=== PATIENT | male | born 1985 | race Caucasian/White ===

== ENCOUNTER 2016-09-23 18:26 | Inpatient (IN) | payer OTHER ==
[~2016-09-23] VITALS: Ht 175.3 cm; Wt 90.7 kg
--- NOTE | ~2016-09-23 | HC ---
[facility] [address] CONSULTATION Name: KRISHNA HUNTER Room #: 535-P [facility] IN M.R.#: [id number] Admission: 09/23/16 Attend Phys: Adrien Collins DO Discharge: Date of : 85 Report #: [id number] THIS REPORT FOR: //name// CC: SVETLANA physician/PCP Adrien Collins DATE OF SERVICE: 09/24/2016 SERVICE: Orthopedics. FACILITY: [facility] REQUESTING PHYSICIAN: Dr. Mercy Moreira. REASON FOR CONSULTATION: Left hand fractures. PAST MEDICAL HISTORY: Reported history of alcohol abuse, previous drug abuse. PAST SURGICAL HISTORY: Denies. ALLERGIES: No known drug allergies. MEDICATIONS: Hydrocodone, Keflex prescription. FAMILY HISTORY: Noncontributory. SOCIAL HISTORY: The patient has unstable home environment for the past 3 years. He has been staying with family members primarily. He smokes approximately a pack per day. He reports heavy alcohol use and history of marijuana use, but no other drugs. REVIEW OF SYSTEMS: Positive for left hand pain and left knee pain. HISTORY OF PRESENT ILLNESS: The patient is a 31-year-old right hand dominant gentleman who works odd jobs for financial needs who sustained an acute left hand injury on 09/23/2016. 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 He presented to emergency room where he underwent irrigation, debridement, tetanus administration and IV antibiotics administration. He had primary closure and splint placing. He then apparently was found to be had returned to the emergency room and because of concerns of followup needs and has expressed concern about depression and alcohol abuse, he was admitted to the hospital for further care. [facility] [address] [place] [address] CONSULTATION Name: KRISHNA HUNTER Room #: 535-P ADM IN M.R.#: [id number] Admission: 09/23/16 Attend Phys: Adrien Collins DO Discharge: Date of : 85 Report #: [id number] The patient presently complains of left small ring finger pain. He states he has been able to flex the IP joints. PHYSICAL EXAMINATION: VITAL SIGNS: Temperature is 36.6, pulse 78, respirations 18, blood pressure 111/65. GENERAL: He is healthy appearing male who appears his stated age. HEAD: There is evidence of ecchymosis around the eye from previous trauma. LEFT UPPER EXTREMITY: There is an oblique shinto across the volar aspect of the long ring finger that has been closed. There is some skin maceration present. There is no open wound dorsally. There is no deformity. He has gross sensation intact on the tip of the finger with brisk capillary refill. He demonstrates active flexion of the IP and MCP joints, although this is limited due to pain, small finger. There is an oblique laceration that has been primarily closed with nylon sutures. There is maceration of the skin. There is abrasion on the dorsal aspect of the finger. There is no rotational or angular deformity. There is gross sensation intact at the tip of the finger with brisk capillary refill. He is able to actively flex the IP joint and the MCP joint, although he has limitation due to pain. Left knee, there is soft tissue swelling and general tenderness. The knee is grossly stable. RADIOGRAPHS: Left hand: X-rays of the left hand are reviewed. There is a comminuted fracture of P2 of the fifth finger without significant displacement. There is only mild displacement and angulation and rotation appear within normal limits. There is no significant joint involvement. The ring finger has a small what appears to be dorsal avulsion fracture at the base of P2 two without any evidence of joint subluxation. This fracture is nondisplaced. Radiograph interpretation: Left knee: AP, lateral and obliques of the left knee demonstrate no evidence of fracture involvement at the knee joint. IMPRESSION: A 31-year-old right hand dominant male with acute trauma to left hand sustaining left 4th and 5th second phalanx fractures and left 4th and 5th volar soft tissue lacerations without evidence of flexor tendon injury. PLAN: I performed wound care on his hand today at the bedside and I taught him daily wound care. The recommendation will be once daily washing with soap and water followed by application of a nonstick dressing and dry gauze with roll gauze and dorsal AlumaFoam splinting. Regarding the knee, our recommendation is ice and elevation as needed with weightbearing as tolerated after the MRI is obtained. We administered 1 gram of vancomycin IV today and we will start him on his Keflex prescription 500 mg p.o. q.i.d. for 7 days starting first thing in the morning, so he will [address] [address] CONSULTATION Name: HUNTER,KRISHNA Room #: 535-P [facility] IN M.R.#: [id number] Admission: 09/23/16 Attend Phys: Adrien Collins DO Discharge: Date of : 85 Report #: [id number] continue this through evening. Social consult had been initiated as he patient has expressed interest in the alcohol treatment, placement. <ELECTRONICALLY SIGNED> By: Dread Thomas MD 09/25/16 1033 [id number] Dread Thomas MD /nt
--- NOTE | ~2016-09-23 | O ---
[facility] [place] [address] OPERATIVE REPORT Name: KRISHNA HUNTER Room #: 535-P [facility] IN M.R.#: [id number] Admission: 09/23/16 Attend Phys: Adrien Collins DO Discharge: Date of : 85 Report #: [id number] THIS REPORT FOR: //name// CC: SVETLANA physician/PCP Adrien Collins DATE OF SERVICE: 09/26/2016 PREOPERATIVE DIAGNOSIS: Left knee effusion, possible locked knee due to a displaced bucket handle meniscus tear. POSTOPERATIVE DIAGNOSIS: Left knee bloody effusion with full range of motion. PROCEDURE PERFORMED: Left knee joint aspiration with diagnostic injection of 10 mL of 1% lidocaine. COMPLICATIONS: None. CONDITION: Stable. DISPOSITION: At the bedside. DESCRIPTION OF PROCEDURE: The risks, benefits, alternatives, and complications were discussed including, but not limited to infection and flare reaction from the local anesthetic were discussed. Informed consent was obtained. The correct extremity was sterilely prepped and the subcutaneous tissue was infiltrated with epinephrine injection and the proposed aspiration site was injected with approximately 1 mL of 1% lidocaine using a 25-gauge needle. After adequate anesthesia was obtained and under sterile conditions, an 18-gauge needle was inserted into the superior lateral aspect of the knee. 50 mL of bloody fluid was obtained and then 10 mL of 1% lidocaine was injected into the knee joint and approximately 5-10 minutes later, the patient's knee was again examined. He had full extension and flexion was near complete. There was no locking. The fluid was sent to microbiology for evaluation for aerobic, anaerobic, fungal, and acid-fast bacilli, culture, Gram stain and then fluid analysis as well. The patient tolerated procedure well. This was done at his bedside. By: [id number] Olga No MD /nt
[~2016-09-23 18:26] MED LIST: KEFLEX500 MG PO; NORCO 5-325 TA1 EACH PO
[2016-09-23 18:28] VITALS: BP 120/78
[2016-09-24 04:00] VITALS: BP 103/53
[2016-09-24 07:45] VITALS: BP 101/69
[2016-09-24 15:49] VITALS: BP 111/65
[2016-09-24 21:05] VITALS: BP 128/65
[2016-09-25 04:15] VITALS: BP 112/65
[2016-09-25 08:21] VITALS: BP 111/53
[2016-09-25] MEDS ORDERED: KEFLEX500 MG PO (14:56)
[2016-09-25 16:05] VITALS: BP 98/48
[2016-09-25 20:00] VITALS: BP 101/62
[2016-09-26 05:44] VITALS: BP 103/65
[2016-09-26 07:25] VITALS: BP 103/50
[2016-09-26 11:40] LABS: BF RBC 1536000; CLARITY TURBID; COLOR RED; MANUAL DIFF YES; TOTAL VOLUME 44 mL
[2016-09-26 11:41] LABS: BF NUCLEATED CELLS 31500
[2016-09-26 13:59] LABS: BF NEUTROPHILS 11
[2016-09-26 14:01] LABS: BF COMMENTS 34; BF MACROPHAGE 16
[2016-09-26 15:42] VITALS: BP 97/52
[2016-09-26 19:30] VITALS: BP 110/64
[2016-09-27 04:30] VITALS: BP 106/66
[2016-09-27 08:00] VITALS: BP 106/72
[2016-09-27 16:00] VITALS: BP 109/66
[2016-09-27 19:35] VITALS: BP 109/56
[2016-09-28 07:18] VITALS: BP 99/51
[2016-09-28 14:05] VITALS: BP 99/51
[2016-09-28 14:09] VITALS: BP 99/51
== END 2016-09-28 14:30 | disposition home or self-care (01) | DRG 563 ==
LOC: ER 18:26 → EROBS 20:39 → 5S 20:39
PROVIDERS: Orthopaedic Surgery Hand Surgery
PROC: 3E0U3BZ Introduction of Anesthetic Agent into Joints, Percutaneous Approach (ICD-10-PCS; principal; 2016-09-26)
PROC: 0S9D3ZZ Drainage of Left Knee Joint, Percutaneous Approach (ICD-10-PCS; principal; 2016-09-26)
DX: S62.627B Displaced fracture of middle phalanx of left little finger, initial encounter for open fracture (principal); S62.655B Nondisplaced fracture of middle phalanx of left ring finger, initial encounter for open fracture; M25.462 Effusion, left knee; F99 Mental disorder, not otherwise specified; F19.10 Other psychoactive substance abuse, uncomplicated; F12.10 Cannabis abuse, uncomplicated; Y90.9 Presence of alcohol in blood, level not specified; S67.194A Crushing injury of right ring finger, initial encounter; F32.9 Major depressive disorder, single episode, unspecified; F10.20 Alcohol dependence, uncomplicated; F17.210 Nicotine dependence, cigarettes, uncomplicated; W20.8XXA Other cause of strike by thrown, projected or falling object, initial encounter; Y93.89 Activity, other specified; Y92.89 Other specified places as the place of occurrence of the external cause; Y99.8 Other external cause status; Z59.0 Homelessness; Z71.6 Tobacco abuse counseling; Z79.899 Other long term (current) drug therapy; Z71.41 Alcohol abuse counseling and surveillance of alcoholic; Z23 Encounter for immunization
CPT/HCPCS: 10086